=== PATIENT | male | born 1950 | race Caucasian/White ===

== ENCOUNTER 2017-10-28 11:04 | Emergency (ER) | payer OTHER, MEDICARE ==
[~2017-10-28] VITALS: Ht 172.7 cm; Wt 92.1 kg
[2017-10-28 11:09] VITALS: BP 204/92; PULSE 57; RESP 16; TEMP 97.2; O2SAT 97
[2017-10-28] MEDS ORDERED: EFFE150C PO (11:28)
[2017-10-28] MEDS ORDERED: ASPI81CH6 CHEW (11:28)
[2017-10-28] MEDS ORDERED: CENTCHW4 CHEW (11:28)
[2017-10-28] MEDS ORDERED: REST0.05 EACH EYE (11:28)
[2017-10-28] MEDS ORDERED: LIPI80TA PO (11:28)
[2017-10-28] MEDS ORDERED: CARV12.52 PO (11:28)
[2017-10-28] MEDS ORDERED: LISI40TA PO (11:28)
[2017-10-28] MEDS ORDERED: NOVOLOGP2 SQ (11:28)
[2017-10-28] MEDS ORDERED: LANTUS2P SQ (11:28)
[2017-10-28] MEDS ORDERED: TRAZ100T10 PO (11:28)
[2017-10-28] MEDS ORDERED: METF500T PO (11:28)
[2017-10-28] MEDS ORDERED: DIVA500T3 PO ×2 (11:28)
--- NOTE | 2017-10-28 11:42 | PD ---
HPI Chief Complaint: Hypertension Time Seen by Provider: 11:27 Travel History International Travel<30 days: No Contact w/Intl Traveler<30days: No Traveled to known affect area: No History of Present Illness HPI This 67-year-old male is complaining of high blood pressure. He has a history of hypertension for 40 years. He has been on a multitude of medications. He is currently on lisinopril 40 mg once daily and carvedilol 12.5 twice daily. He was taken off amlodipine a few months ago because he was not happy about being on so many medications. He has no history of heart disease or stroke. He does have a history of diabetes and has diabetic retinopathy. He is not having pain or shortness of breath. He does have chronic headaches PFSH Past Medical History Hx Anticoagulant Therapy: Yes (asa 81mg) Depression: Yes Cardiovascular Problems: Yes (htn on meds) High Cholesterol: Yes Diabetes: Yes (type 2) Patient Takes Glucophage: Yes Deep Vein Thrombosis: Yes Hypertension: Yes Tetanus Vaccination: Unknown Influenza Vaccination: Yes Past Surgical History Cardiac Surgery: Yes (BILATERAL LEG STENTS) Social History Alcohol Use: Yes (RARE) Tobacco Use: No Substance Use: No Allergies-Medications (Allergen,Severity, Reaction): Coded Allergies: Iodinated Contrast- Oral and IV Dye (Verified Allergy, Intermediate, hives , 10/28/17) moxifloxacin (Verified Allergy, Intermediate, hives, 10/28/17) Reported Meds & Prescriptions Reported Meds & Active Scripts Active Reported Centrum (Multiple Vitamins W/ Minerals) 1 Chew 1 Tab CHEW DAILY Trazodone (Trazodone HCl) 100 Mg Tablet 100 Mg PO HS Divalproex ER (Divalproex Sodium) 500 Mg Tab 1,000 Mg PO HS Divalproex ER (Divalproex Sodium) 500 Mg Tab 500 Mg PO DAILY Restasis Opth (Cyclosporine Opth) 0.05% Emul 1 Drop EACH EYE BID Novolog Inj (Insulin Aspart) 1,000 Unit/10 Ml Vial 0 SQ DIRECTED Sliding Scale as directed. Metformin (Metformin HCl) 500 Mg Tab 500 Mg PO BIDPC Lantus Inj (Insulin Glargine) 1,000 Unit/10 Ml Vial 1 Units SQ HS Effexor XR 24 HR (Venlafaxine HCl) 150 Mg Cap 150 Mg PO DAILY Aspirin Low Dose (Aspirin) 81 Mg Chew 81 Mg CHEW DAILY Lipitor (Atorvastatin Calcium) 80 Mg Tab 80 Mg PO HS Lisinopril 40 Mg Tab 40 Mg PO DAILY Carvedilol 12.5 Mg Tab 12.5 Mg PO BID Review of Systems General / Constitutional: No: Fever, Chills Eyes: No: Diploplia, Blurred Vision HENT: Positive: Headaches Cardiovascular: No: Chest Pain or Discomfort, Palpitations Respiratory: No: Cough, Shortness of Breath Gastrointestinal: No: Vomiting, Diarrhea Genitourinary: No: Urgency Musculoskeletal: No: Myalgias, Arthralgias Skin: No Rash Neurologic: No: Weakness, Dizziness Hematologic/Lymphatic: No: Easy Bruising Physical Exam Narrative GENERAL: Well-developed male SKIN: Focused skin assessment warm/dry. HEAD: Atraumatic. Normocephalic. EYES: Pupils equal and round. No scleral icterus. No injection or drainage. ENT: No nasal bleeding or discharge. Mucous membranes pink and moist. NECK: Trachea midline. No JVD. CARDIOVASCULAR: Regular rate and rhythm. No murmur appreciated. RESPIRATORY: No accessory muscle use. Clear to auscultation. Breath sounds equal bilaterally. GASTROINTESTINAL: Abdomen soft, non-tender, nondistended. Hepatic and splenic margins not palpable. MUSCULOSKELETAL: No obvious deformities. No clubbing. No cyanosis. No edema. NEUROLOGICAL: Awake and alert. No obvious cranial nerve deficits. Motor grossly within normal limits. Normal speech. PSYCHIATRIC: Appropriate mood and affect; insight and judgment normal. Data Data Last Documented VS Vital Signs Date Time Temp Pulse Resp B/P (MAP) Pulse Ox O2 Delivery O2 Flow Rate FiO2 10/28/17 13:16 55 16 199/83 (121) 97 Room Air 10/28/17 11:09 97.2 Orders Orders Complete Blood Count With Diff (10/28/17 11:37) Basic Metabolic Panel (Bmp) (10/28/17 11:37) Acetamin-Hydrocod 325-5 Mg ([place] 5-325 (10/28/17 11:45) Clonidine (Catapres) (10/28/17 11:45) Labs Laboratory Tests Test 10/28/17 11:45 White Blood Count 10.0 TH/MM3 Red Blood Count 4.53 MIL/MM3 Hemoglobin 13.8 GM/DL Hematocrit 40.4 % Mean Corpuscular Volume 89.3 FL Mean Corpuscular Hemoglobin 30.4 PG Mean Corpuscular Hemoglobin Concent 34.0 % Red Cell Distribution Width 12.8 % Platelet Count 177 TH/MM3 Mean Platelet Volume 9.4 FL Neutrophils (%) (Auto) 59.9 % Lymphocytes (%) (Auto) 30.2 % Monocytes (%) (Auto) 7.2 % Eosinophils (%) (Auto) 1.5 % Basophils (%) (Auto) 1.2 % Neutrophils # (Auto) 6.0 TH/MM3 Lymphocytes # (Auto) 3.0 TH/MM3 Monocytes # (Auto) 0.7 TH/MM3 Eosinophils # (Auto) 0.2 TH/MM3 Basophils # (Auto) 0.1 TH/MM3 CBC Comment DIFF FINAL Differential Comment Blood Urea Nitrogen 18 MG/DL Creatinine 0.83 MG/DL Random Glucose 167 MG/DL Calcium Level 8.5 MG/DL Sodium Level 135 MEQ/L Potassium Level 4.9 MEQ/L Chloride Level 101 MEQ/L Carbon Dioxide Level 30.7 MEQ/L Anion Gap 3 MEQ/L Estimat Glomerular Filtration Rate 92 ML/MIN [facility] Medical Decision Making Medical Screen Exam Complete: Yes Emergency Medical Condition: Yes Medical Record Reviewed: Yes Differential Diagnosis Lab work is unremarkable. Patient has had elevated blood pressure some time. Narrative Course Patient was given clonidine his pressures come down to 200/80. I am going to recommend that he increase his carvedilol to 25 mg twice a day will also prescribe some clonidine to use on an as-needed basis Diagnosis Primary Impression: Hypertension Scripts Clonidine (Clonidine) 0.1 Mg Tab 0.1 MG PO DAILY for Blood Pressure Management, #10 TAB 0 Refills Prov: Kannan Roberts MD 10/28/17 Carvedilol (Carvedilol) 25 Mg Tab 25 MG PO BID, #60 TAB 0 Refills Prov: Kannan Roberts MD 10/28/17 Disposition: 01 DISCHARGE HOME Condition: Stable Kannan Roberts MD Oct 28, 2017 11:42
[2017-10-28] MEDS ORDERED: cloNIDine HCL 0.2 MG TAB PO ONE (11:45)
[2017-10-28] MEDS ORDERED: ACETAMINOPHEN/HYDROcodone 325 MG/5 MG TAB PO ONE (11:45)
[2017-10-28 11:51] LABS: BASOPHIL # 0.1 TH/MM3 (0-0.2); BASOPHIL % 1.2 % (0.0-2.0); EOSINOPHIL # 0.2 TH/MM3 (0-0.4); EOSINOPHIL % 1.5 % (0.0-4.0); HEMATOCRIT 40.4 % (39.0-51.0); HEMOGLOBIN 13.8 GM/DL (13.0-17.0); LYMPH % 30.2 % (9.0-44.0); MEAN CELL VOLUME 89.3 FL (80.0-100.0); MEAN CORPUSCULAR HEMOGLOBIN 30.4 PG (27.0-34.0); MEAN PLATELET VOLUME 9.4 FL (7.0-11.0); MONO % 7.2 % (0.0-8.0); MONOCYTE # 0.7 TH/MM3 (0-0.9); NEUT % 59.9 % (16.0-70.0); PLATELET COUNT 177 TH/MM3 (150-450); RED BLOOD COUNT 4.53 MIL/MM3 (4.50-5.90); RED CELL DISTRIBUTION WIDTH 12.8 % (11.6-17.2)
[2017-10-28 12:03] LABS: BICARBONATE 30.7 MEQ/L (21.0-32.0); CALCIUM 8.5 MG/DL (8.5-10.1)
[2017-10-28 12:07] LABS: CREATININE 0.83 MG/DL (0.60-1.30)
[2017-10-28 12:33] VITALS: BP 200/84; PULSE 57; RESP 16; O2SAT 97
[2017-10-28 13:16] VITALS: BP 199/83; PULSE 55; RESP 16; O2SAT 97
[2017-10-28] MEDS ORDERED: CLON0.1T PO (13:20)
[2017-10-28] MEDS ORDERED: CARV25TA PO (13:20)
== END 2017-10-28 13:30 | disposition home or self-care (01) ==
LOC: PHED 11:04
DX: I10 Essential (primary) hypertension (principal); R51 Headache; E11.319 Type 2 diabetes mellitus with unspecified diabetic retinopathy without macular edema; Z79.82 Long term (current) use of aspirin
CPT/HCPCS: 80048; 85025; 99283